=== PATIENT | female | born 1955 | race African-American/Black ===

== ENCOUNTER 2022-11-10 13:41 | Emergency (ER) | payer MEDICAID, OTHER ==
[~2022-11-10] VITALS: Ht 167.6 cm; Wt 64.0 kg
[2022-11-10 13:50] VITALS: BP 142/71
[2022-11-10] MEDS ORDERED: MELO-104 MT (21:28)
== END 2022-11-10 21:41 | disposition home or self-care (01) ==
LOC: ER 13:41
DX: M79.18 Myalgia, other site (principal); M25.571 Pain in right ankle and joints of right foot; M25.572 Pain in left ankle and joints of left foot
CPT/HCPCS: 36415; 85379; 99283

== ENCOUNTER 2022-11-17 10:37 | Emergency (ER) | payer MEDICAID, OTHER ==
[~2022-11-17] VITALS: Ht 167.6 cm; Wt 64.0 kg
[~2022-11-17 10:37] MED LIST: MELO-104 MT
[2022-11-17 12:29] LABS: BASOPHILS % 0.8 % (0.0-2.0); EOSINOPHILS % 3.9 % (0.0-5.0); HEMATOCRIT. 41.8 % (36.0-48.0); HEMOGLOBIN. 13.5 g/dL (12.0-16.0); LYMPHOCYTES % 36.6 % (20.0-50.0); MEAN CORPUSCULAR VOLUME 86.7 fL (81.0-99.0); MEAN PLATELET VOLUME 9.1 fl (7.4-10.4); MONOCYTES % 7.8 % (2.0-8.0); NEUTROPHILS % 50.9 % (40.0-76.0); PLATELET 235 x1000/uL (130-400); RED BLOOD CELL COUNT 4.82 mill/uL (4.2-5.4)
[2022-11-17 12:38] LABS: CHLORIDE 108 mEq/L (98-107)
[2022-11-17 13:22] VITALS: BP 132/72
[2022-11-17] MEDS ORDERED: NAPR-681 MT (13:32)
== END 2022-11-17 13:41 | disposition home or self-care (01) ==
LOC: ER 10:37
DX: R60.9 Edema, unspecified (principal); M79.604 Pain in right leg; M79.605 Pain in left leg; E11.9 Type 2 diabetes mellitus without complications; I10 Essential (primary) hypertension
CPT/HCPCS: 36415; 80048; 85025; 93970; 99284